=== PATIENT | female | born 1995 | race African-American/Black ===

== ENCOUNTER 2019-09-28 09:28 | Emergency (ER) | payer SELFPAY ==
[~2019-09-28] VITALS: Ht 162.6 cm; Wt 70.0 kg
[2019-09-28] MEDS ORDERED: AZITHROMYCIN 500 MG TABLET PO ONE (11:45)
[2019-09-28] MEDS ORDERED: LIDOCAINE HCL 1% 20ML VIAL (Pyxis) INJ INFIL ONE (11:45)
[2019-09-28] MEDS ORDERED: CEFTRIAXONE SODIUM 250 MG/VIAL IM ONE (11:45)
[2019-09-28 11:59] LABS: CLARITY URINE CLEAR (CLEAR); COLOR URINE YELLOW (YELLOW); KETONES URINE TRACE (NEGATIVE); LEUKOCYTE ESTERASE URINE NEGATIVE (NEGATIVE); NITRITE URINE NEGATIVE (NEGATIVE); OCCULT BLOOD URINE NEGATIVE (NEGATIVE); PROTEIN URINE NEGATIVE (NEGATIVE); SPECIFIC GRAVITY URINE 1.023 (1.005-1.030); UROBILINOGEN URINE 0.2 E.U./dL (0.2-1.0)
[2019-09-28] MEDS ORDERED: ONDANSETRON 4MG ODT PO ONE (12:00)
[2019-09-28 12:54] VITALS: BP 119/85
[2019-09-30 09:10] LABS: CHLAMYDIA TRACHOMATIS NAA Negative (Negative); NEISSERIA GONORRHOEAE NAA Negative (Negative)
== END 2019-09-28 12:58 | disposition home or self-care (01) ==
LOC: ER 09:28
DX: N76.0 Acute vaginitis (principal)
CPT/HCPCS: 81003; 81025; 87210; 87491; 87591; 99283; J0696; J3490; Q0162; Z7610